=== PATIENT | female | born 1955 | race Hispanic/Latino ===

== ENCOUNTER 2024-12-12 16:01 | Emergency (ER) | payer OTHER, MEDICARE, MEDICAID ==
[~2024-12-12] VITALS: Ht 152.4 cm; Wt 65.8 kg
--- NOTE | 2024-12-12 17:40 | NUR ---
PT SITUATED IN 15
[2024-12-12 18:20] VITALS: BP 138/67; PULSE 68; RESP 17; TEMP 98; O2SAT 98
--- NOTE | 2024-12-12 18:21 | HMCIMG ---
LUMBAR SPINE 2-3VWS HISTORY: Pain COMPARISON: None FINDINGS: 3 images of the lumbar spine were obtained There is accentuated lordosis of normal lordotic curvature which may be related to muscle spasm or positioning. No loss of vertebral height is seen. No fracture or dislocation is seen. Degenerative changes are seen. IMPRESSION: 1. No fracture is seen.
--- NOTE | 2024-12-12 18:22 | HMCIMG ---
HIP UNILAT 4VW RIGHT REASON: pain. COMPARISON: None TECHNIQUE: 3 images of pelvis and right hip were obtained. FINDINGS: Degenerative changes are seen. No acute displaced fractures. Bilateral hip joint space narrowing. IMPRESSION: Findings as described above.
[2024-12-12] MEDS: acetaMINOPHEN 500 MG TABLET PO ONE (18:25)
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
--- NOTE | 2024-12-12 19:23 | NUR ---
PT REFUSED TYLENOL.
== END 2024-12-12 18:47 | disposition home or self-care (01) ==
LOC: EDH 16:01
DX: S70.01XA Contusion of right hip, initial encounter (principal); V49.3XXA Car occupant (driver) (passenger) injured in unspecified nontraffic accident, initial encounter; Y93.89 Activity, other specified; Y92.488 Other paved roadways as the place of occurrence of the external cause; Y99.8 Other external cause status
CPT/HCPCS: 72100; 73503; 99284